=== PATIENT | female | born 1990 | race Caucasian/White ===

== ENCOUNTER 2018-09-01 09:43 | Observation (INO) | payer MEDICAID ==
[2018-09-01] VITALS (7 sets, daily range): BP systolic 98–122; BP diastolic 63–85
[~2018-09-01] VITALS: Ht 172.7 cm; Wt 65.3 kg
[~2018-09-01 09:43] MED LIST: ALBUTEROL INH INH; IBUP-1623 PO; PROG50VI IM-VACC
--- NOTE | 2018-09-01 10:33 | NUR ---
28 Y/O FEMALE PRESENTS TO ED WITH C/O SYNCOPE, "I ALMOST PASS OUT BUT REMEMBER BEING THERE. I GET HOT, DIZZY AND EVERY THING TURNS BLACK. IT ALSO FEELS LIKE ALL THE BLOOD IS RUSHING TO MY HEAD. LIKE I HUNG MY HEAD UPSIDE DOWN TOO LONG. IT'S HAPPEN ABOUT 7 TIMES. I'M ON MIGRAINE MEDICATION." NO ACUTE DISTRESS NOTED. NO C/O N/V/D, TRAUMA, SYNCOPE, CP, SOB, GERARDO. PT PLACED ON CONT PULSE OX, NIBP, EDMD BEDSIDE.
--- NOTE | 2018-09-01 10:36 | NUR ---
LATE ENTRY FOR 1020 PT TO ROOM FROM NIMESH
[2018-09-01] MEDS ORDERED: SUMA100T3 PO (10:52)
--- NOTE | 2018-09-01 11:03 | NUR ---
PT AMBULATORY WITH STEADY GAIT TO BATHROOM. NO ACUTE DISTRESS NOTED. PT PLACED ON ALL MONITORS
[2018-09-01 11:10] LABS: BASOPHILS # (AUTO) 0.03 x10^3/uL (0-0.1); BASOPHILS % (AUTO) 0 % (0-1); EOSINOPHILS # (AUTO) 0.13 x10^3/uL (0-0.4); EOSINOPHILS % (AUTO) 2 % (1-7); LYMPHOCYTES % (AUTO) 30 % (22-44); MD NO; MEAN CORPUSCULAR HEMOGLOBIN 29.6 pg (27.0-34.8); MEAN CORPUSCULAR HGB CONC 33.1 g/dL (32.4-35.8); MEAN CORPUSCULAR VOLUME 89.5 fL (80-100); MEAN PLATELET VOLUME 8.6 fL (7.4-10.4); MONOCYTES # (AUTO) 0.28 x10^3/uL (0.2-0.8); MONOCYTES % (AUTO) 5 % (2-9); NEUTROPHILS # (AUTO) 3.84 x10^3/uL (1.8-6.8); NEUTROPHILS % (AUTO) 63 % (42-75); PLATELET COUNT 294 x10^3/uL (130-400); RED BLOOD COUNT 4.78 x10^6/uL (3.82-5.3); RED CELL DISTRIBUTION WIDTH 12.2 % (9.6-15.2)
[2018-09-01 11:23] LABS: ALANINE AMINOTRANSFERASE 26 U/L (12-78); ALBUMIN 4.1 g/dL (3.4-5.0); ANION GAP 7 mmol/L (5-15); CALCIUM 8.6 mg/dL (8.5-10.1); CHLORIDE 109 mmol/L (98-107); CREATININE 0.69 mg/dL (0.55-1.02)
[2018-09-01 11:24] LABS: MICROSCOPIC AUTO
[2018-09-01 11:25] LABS: CULTURE INDICATED? YES
[2018-09-01 11:28] LABS: ALKALINE PHOSPHATASE 66 U/L (45-117); BILIRUBIN,TOTAL 0.3 mg/dL (0.2-1.0)
[2018-09-01] MEDS ORDERED: SODIUM CHLORIDE 0.9% 1,000 ML IV ONE (12:00)
--- NOTE | 2018-09-01 12:09 | NUR ---
TASK RN: REPORT RECEIVED PATIENT RESTING COMFORTABLY IN BED WITH NO CURRENT COMPLAINTS AWAITING HOSPITALIST EVAL/ADMIT VITALS UPDATED, STABLE ON MONITOR PIV STARTED-IVFS STARTED PER EMAR CALL SZYMANSKI IN HAND/SIDE RAILS UP
--- NOTE | 2018-09-01 12:47 | NUR ---
BEDSIDE REPORT TO KESHIA ORTA
--- NOTE | 2018-09-01 12:49 | NUR ---
LATE ENTRY FOR 1238 RECEIVED BEDSIDE REPORT FROM KESHIA CROWDER.
[2018-09-01] MEDS: SODIUM CHLORIDE 0.9% 1,000 ML IV SCH ×2 (13:00→21:00)
--- NOTE | 2018-09-01 13:23 | NUR ---
PT RESTING ON GURNEY NO ACUTE DISTRESS NOTED. NO NEEDS REQUESTED AT THIS TIME.
--- NOTE | 2018-09-01 14:33 | NUR ---
PT RESTING ON GURVALDEMAR AT THIS TIME, NO DISTRESS NOTED. WILL CONTINUE TO MONITOR.
--- NOTE | 2018-09-01 15:16 | NUR ---
pt ambulatory with steady gait to bathroom. no acute distress noted. pt reattached to all monitors. no needs requested at this time
--- NOTE | 2018-09-01 15:17 | NUR ---
PT AMBULATED TO BR. NO NEEDS AT THIS TIME. AWAITING ROOM PLACEMENT
[2018-09-01] MEDS ORDERED: ACETAMINOPHEN 325 MG TABLET ONE (16:30)
[2018-09-01] MEDS: ACETAMINOPHEN 325 MG TABLET PO PRN ×2 (16:32→21:41)
--- NOTE | 2018-09-01 16:35 | NUR ---
ED DIET TRAY ORDERED. PT RESTING ON GURNEY. PT VERBALIZES POC. NO ACUTE DISTRESS NOTED. PT MEDICATED PER EMAR. NO NEEDS REQUESTED AT THIS TIME
--- NOTE | 2018-09-01 17:16 | NUR ---
REPORT GIVEN TO RECEIVING RN LAYLA. AWAITING TRANSPORT
[2018-09-01 19:15] LABS: AMPHETAMINE SCREEN, URINE Negative (Negative); BARBITURATE SCREEN, URINE Negative (Negative); BENZODIAZEPINE SCREEN, URINE Negative (Negative); CANNABINOID SCREEN, URINE Negative (Negative); COCAINE SCREEN, URINE Negative (Negative); METHADONE SCREEN, URINE Negative (Negative); OPIATE SCREEN, URINE Negative (Negative)
[2018-09-01] MEDS: SODIUM CHLORIDE FLUSH 10ML SYR IVF SCH (21:43)
[2018-09-02] VITALS (7 sets, daily range): BP systolic 94–118; BP diastolic 65–83
[2018-09-02] MEDS: SODIUM CHLORIDE 0.9% 1,000 ML IV SCH (05:48)
[2018-09-02] MEDS ORDERED: VERA40TA PO (07:51)
[2018-09-02] MEDS: SODIUM CHLORIDE FLUSH 10ML SYR IVF SCH (09:00)
[2018-09-02] MEDS: ACETAMINOPHEN 325 MG TABLET PO PRN (09:21)
[2018-09-02] MEDS ORDERED: GADOBUTROL 7.5 MMOL/7.5 ML PFS ONE (12:33)
== END 2018-09-02 16:40 | disposition home or self-care (01) ==
LOC: ED 11:13 → INTOOBSV 11:46 → EDIP 11:46 → 4EST 18:12 → DCLOUNGE 09-02 16:30
PROVIDERS: ADMIT Internal Medicine; ATTEND Internal Medicine
DX: R42 Dizziness and giddiness (principal); R55 Syncope and collapse; G43.909 Migraine, unspecified, not intractable, without status migrainosus; J45.909 Unspecified asthma, uncomplicated; Z79.899 Other long term (current) drug therapy; Z98.51 Tubal ligation status
CPT/HCPCS: 36415; 70553; 71045; 80053; 80307; 81001; 83735; 84443; 84703; 85025; 87086; 93005; 93306; 96360; 96361; 97161; 99284; A9585; G0378; J7030